=== PATIENT | female | born 1970 | race Caucasian/White ===

== ENCOUNTER 2020-05-24 20:33 | Emergency (ER) | payer BC ==
[~2020-05-24] VITALS: Ht 160 cm; Wt 103.3 kg
--- NOTE | 2020-05-24 21:26 | PHYS DOC ---
Past History Past Medical History: No Pertinent History Alcohol Use: None General Adult EDM: Chief Complaint: ALLERGIC REACTION HPI: HPI: 49-year-old female presents with concern for allergic reaction. She has been on Bactrim for about 9 days. She has started to feel like she was having a mild reaction for about 5 days. She presents today because she is red all over her s kin and cannot think of any other reason for this reaction. She has not previously been allergic but she does not know if she is taken it before. She denies shortness of breath or difficulty breathing. She does not believe that her tongue or lips feel swollen. She denies fever or chills. This is the only new exposure medication recently. Review of Systems: Review of Systems: Constitutional: Denies fever or chills Eyes: Denies change in visual acuity HENT: Denies nasal congestion or sore throat Respiratory: Denies cough or shortness of breath Cardiovascular: Denies chest pain or edema GI: Denies abdominal pain, nausea, vomiting, bloody stools or diarrhea : Denies dysuria Musculoskeletal: Denies back pain or joint pain Integument: Rash Neurologic: Denies headache, focal weakness or sensory changes Endocrine: Denies polyuria or polydipsia Lymphatic: Denies swollen glands Psychiatric: Denies depression or anxiety Current Medications: Current Meds: Current Medications Medications (Trade) Dose Ordered Sig/Isadora Start Time Stop Time Status Last Admin Dose Admin Diphenhydramine HCl (Benadryl) 25 mg 1X ONCE 05/24/20 21:30 05/24/20 21:31 Methylprednisolone Sodium Succinate (SOLU-Medrol 125MG VIAL) 125 mg 1X ONCE 05/24/20 21:30 05/24/20 21:31 Sodium Chloride 1,000 ml @ 1,000 mls/hr 1X ONCE 05/24/20 21:30 05/24/20 22:29 Allergies: Allergies: Allergies Coded Allergies Type Severity Reaction Last Updated Verified levofloxacin Allergy Mild 05/24/20 Yes Physical Exam: PE: Constitutional: Well developed, well nourished, morbidly obese, no acute distress, non-toxic appearance. [] HENT: Normocephalic, atraumatic, bilateral external ears normal, oropharynx moist, no oral exudates, nose normal. [] Eyes: PERRLA, EOMI, conjunctiva normal, no discharge. [] Neck: Normal range of motion, no tenderness, supple, no stridor. [] Cardiovascular: Heart rate regular rhythm, no murmur [] Lungs & Thorax: Bilateral breath sounds clear to auscultation [] Abdomen: Bowel sounds normal, soft, no tenderness, no masses, no pulsatile masses. [] Skin: Diffuse erythematous skin mostly of the upper extremities, chest, and face. [] Back: No tenderness, no CVA tenderness. [] Extremities: No tenderness, no cyanosis, no clubbing, ROM intact, no edema. [] Neurologic: Alert and oriented X 3, normal motor function, normal sensory function, no focal deficits noted. [] Psychologic: Affect normal, judgement normal, mood normal. [] Current Patient Data: Vital Signs: Vital Signs Date Time Temp Pulse Resp B/P (MAP) Pulse Ox O2 Delivery O2 Flow Rate FiO2 05/24/20 21:12 98.6 127 22 135/77 (96) 96 Room Air EKG: EKG: [] Radiology/Procedures: Radiology/Procedures: [] Heart Score: Risk Factors: Risk Factors: DM, Current or recent (<one month) smoker, HTN, HLP, family history of CAD, obesity. Risk Scores: Score 0 - 3: 2.5% MACE over next 6 weeks - Discharge Home Score 4 - 6: 20.3% MACE over next 6 weeks - Admit for Clinical Observation Score 7 - 10: 72.7% MACE over next 6 weeks - Early Invasive Strategies Course & Med Decision Making: Course & Med Decision Making Pertinent Labs and Imaging studies reviewed. (See chart for details) The patient's labs are significant for slightly elevated liver enzymes at a sodium of 127. She does not appear to be symptomatic from the low sodium. I have no previous for comparison. Patient has been given 125 of Solu-Medrol, 25 of Benadryl, and a liter of normal saline. I will discharge her with additional 3 days of prednisone. The patient is feeling better. She is stable for discharge at this time. [] [place] Disclaimer: Dragjen Disclaimer: This electronic medical record was generated, in whole or in part, using a voice recognition dictation system. Departure Departure: Impression: Primary Impression: Allergic reaction due to antibacterial drug Additional Impression: Hyponatremia Disposition: 01 DC HOME SELF CARE/HOMELESS Condition: STABLE Referrals: SHELLIE DUENAS MD (PCP) Patient Instructions: Drug Allergy, [id number] Scripts Prednisone (PREDNISONE) 10 Mg Tablet 50 MG PO DAILY for allergic reaction for 3 Days, #15 TAB Prov: KATERIN CHEN DO 05/24/20 KATERIN CHEN DO May 24, 2020 21:26
[2020-05-24] MEDS ORDERED: diphenhydrAMINE 50 MG/ML VIAL IVP ONE (21:30)
[2020-05-24] MEDS ORDERED: methylPREDNISolone SOD SUCC PF 125 MG/2 ML VIAL. IV ONE (21:30)
[2020-05-24] MEDS ORDERED: IV NORMAL SALINE 1,000ML 1,000 ML IV ONE (21:30)
[2020-05-24 22:05] LABS: BASO % 0 % (0-3); EOS # 0.4 x10^3/uL (0.0-0.7); EOS % 10 % (0-3); HEMATOCRIT 44.6 % (36.0-47.0); HEMOGLOBIN 15.4 g/dL (12.0-15.5); LYMPH # 0.5 x10^3/uL (1.0-4.8); LYMPH % 14 % (24-48); MEAN CORPUSCULAR HEMOGLOBIN 31 pg (25-35); MEAN CORPUSCULAR HGB CONC 35 g/dL (31-37); MEAN CORPUSCULAR VOLUME 91 fL (79-100); MONO # 0.3 x10^3/uL (0.0-1.1); MONO % 9 % (0-9); NEUT # 2.4 x10^3uL (1.8-7.7); NEUT % 67 % (31-73); PLATELET COUNT 160 x10^3/uL (140-400); RED BLOOD COUNT 4.92 x10^6/uL (3.50-5.40); RED CELL DISTRIBUTION WIDTH 13.2 % (11.5-14.5); WHITE BLOOD COUNT 3.6 x10^3/uL (4.0-11.0)
[2020-05-24 22:07] LABS: CREATININE 1.1 mg/dL (0.6-1.0); GFR 52.4; POTASSIUM 3.2 mmol/L (3.5-5.1)
[2020-05-24 22:13] LABS: ALBUMIN 3.5 g/dL (3.4-5.0); TOTAL BILIRUBIN 0.5 mg/dL (0.2-1.0)
[2020-05-24] MEDS ORDERED: PRED-220 PO (22:29)
[2020-05-24 22:38] VITALS: BP 127/67
== END 2020-05-24 23:00 | disposition home or self-care (01) ==
LOC: ER 20:33
DX: E87.1 Hypo-osmolality and hyponatremia (principal); T36.8X5A Adverse effect of other systemic antibiotics, initial encounter; R21 Rash and other nonspecific skin eruption; Z88.1 Allergy status to other antibiotic agents; Y92.89 Other specified places as the place of occurrence of the external cause
CPT/HCPCS: 36415; 80053; 85025; 96361; 96374; 96375; 99284; J1200; J2930; J7030